=== PATIENT | female | born 1960 | race Caucasian/White ===

== ENCOUNTER 2019-09-25 09:22 | Outpatient (CLI) | payer OTHER, SELFPAY ==
--- NOTE | 2019-09-25 09:38 | CT_ITS ---
WS: [id number] CT ABDOMEN PELVIS TECHNIQUE: Contrast-enhanced CT of the abdomen and pelvis with coronal and sagittal reformatted image s. CLINICAL INFORMATION: PELVIC MASS, COLON CANCER COMPARISON: None. DLP: 1062.[address] scans at [facility] use at least one of these dose optimization techniques: automat ed exposure control; mA and/or kV adjustment per patient size (includes targeted exams where dose is matched to clinical indication); or iterative reconstruction. FINDINGS: Liver is normal. Normal portal vein and splenic vein. Prominent gallstone in the gallbladder neck laura suring 1.5 CM. Normal spleen. Normal GE junction. Lung bases are well aerated. Normal caliber abdomin al aorta. No periaortic or upper abdominal lymphadenopathy. Markedly enlarged fibroid uterus measuring 9.3 x 11.2 x 8.6 cm AP by transverse by craniocaudal. Larg est fibroid measures 8.7 x 7.0 x 7.7 cm which demonstrates diffuse heterogeneous enhancement. Leiomyo sarcoma not entirely excluded. Additional lobulated right sided fibroid measuring 5.5 x 4.8 cm. Fibro id uterus impinges the adjacent bladder. Diffuse nodular wall thickening involving the distal sigmoid and rectum with luminal narrowing. Findi ngs are suspicious for neoplasm with heterogeneous soft tissue at the rectosigmoid measuring 1.8 cm. This can be further evaluated with endoscopy. Mild induration in the perirectal fat and wall thickening in the sigmoid colon. Moderate right colon and transverse colon constipation CT/CT abdomen pelvis w con* [id number] IMPRESSION: 1. Heterogeneous enhancing enlarged fibroid uterus with largest heterogeneousl y enhancing fibroid measuring up to 8.7 cm. Leiomyosarcoma is not excluded. Add itional lobulated right eccentric fibroid measuring 5.5 x 4.8 cm. Recommend OPERATIONS AND MAINTENANCE SPECIALIST consultation for hysterectomy. 2. Diffuse circumferential wall thickening involving the rectosigmoid with ecc entric polypoid mass measuring 1.8 cm suspicious for neoplasm. Mild diffuse wal l thickening involving the distal sigmoid colon. Mild induration in the perirec candice fat. Recommend further evaluation with sigmoidoscopy/colonoscopy. 3. Prominent gallstone in the gallbladder measuring 1.5 CM. No gallbladder wal l thickening. 4. No periaortic lymphadenopathy.
[2019-09-25] MEDS: iohexol 300 mg/mL 50 mL Btl PO (10:27)
[2019-09-25 10:56] LABS: Blood Urea Nitrogen 8 mg/dL (8-23); Glomerular Filtration Rate 72.9 mL/min (90-130)
[2019-09-25] MEDS: iohexol 300 mg/mL 100 mL Btl IV (11:03)
== END 2019-09-25 09:23 | disposition home or self-care (01) ==
LOC: RADWPI 09:28
PROVIDERS: Family Provider Family Medicine; PCP Family Medicine; Visit Provider Family Medicine
DX: C18.9 Malignant neoplasm of colon, unspecified (principal); N85.2 Hypertrophy of uterus; K80.80 Other cholelithiasis without obstruction; R19.00 Intra-abdominal and pelvic swelling, mass and lump, unspecified site
CPT/HCPCS: 74177; 82565; 84520; Q9967

== ENCOUNTER → 2019-11-07 12:50 | Outpatient (BNVA) | payer OTHER, SELFPAY | PROVIDERS: Family Provider Family Medicine; PCP Family Medicine; Visit Provider Obstetrics & Gynecology | DX: Z12.4 Encounter for screening for malignant neoplasm of cervix (principal) | CPT/HCPCS: 88175 ==

== ENCOUNTER → 2019-11-15 09:00 | Outpatient (BNVA) | payer OTHER, SELFPAY | PROVIDERS: Family Provider Family Medicine; PCP Family Medicine; Visit Provider Obstetrics & Gynecology | DX: D25.9 Leiomyoma of uterus, unspecified (principal) | CPT/HCPCS: 76830 ==

== ENCOUNTER → 2022-08-13 11:15 | Outpatient (BNVA) | payer MEDICAID, SELFPAY | PROVIDERS: Family Provider Family Medicine; PCP Family Medicine; Visit Provider Family Medicine | DX: C18.9 Malignant neoplasm of colon, unspecified (principal); Z00.00 Encounter for general adult medical examination without abnormal findings | CPT/HCPCS: 80053; 82306; 82378; 82607; 84443; 85025 ==

== ENCOUNTER 2022-09-11 10:22 | Emergency (ER) | payer MEDICAID, SELFPAY ==
[2022-09-11 10:31] VITALS: BP 128/80; PULSE 98; RESP 18; TEMP 36.8; O2SAT 98
--- NOTE | 2022-09-11 10:46 | ED_ITS ---
HPI - Female Genitourinary General: Chief complaint: Urogenital-Female Stated complaint: urinary problem Time Seen by Provider: 09/11/22 10:32 History of Present Illness: Ms. Acuña is a 62-year-old lady with history of colon cancer diagnosed in 2015 not treated with chemo or radiation, underwent palliative resection at [facility] [place] in 2021 presenting to the emergency department for concern over vaginal discharge with possible feces from the vagina. She reports at baseline secondary to tumor resection she always wears a pad and started noticing some dark discharge anteriorly more concerning for vaginal source yesterday. This morning it was more feces like. Denies abdominal pain or signs of systemic illness. Denies history of similar. With her palliative surgery she had hysterectomy for fibroid uterus. No other specific changes in health, exacerbating, or alleviating factors identified. Onset (ago): day(s) Vaginal discharge: other Vaginal bleeding: none Exacerbating factors: none Relieving factors: none Associated symptoms: Reports no associated symptoms Review of Systems General: Reports: 10 or more systems reviewed and unremarkable except in HPI and below PFSH ED PFSH: Medical History Colon cancer States she had a colonoscopy and was diagnosed with colon cancer in [address] Peters. It was recommended that she have surgery however she declined and desired to proceed with holistic management which she has been doing. Recent CT abdomen done on 09/25/2019 continued to show a soft tissue mass at the rectosigmoid measuring 1.8 cm. -Pathology in November 2015 showed a colon polyp showing an adenoma, rectal mass showing moderately differentiated adenocarcinoma with high-grade dysplasia Fibroid uterus Has had fibroid since at least 1989. Stable fibroid size compared with ultrasound from 2010 to 2019. No pertinent past medical history Denies history of: Asthma, lung, liver, heart, diabetes, thyroid, kidney problems, bleeding or clotting disorders, DVT/PE PCP: Dr. Delacruz Surgical History History of removal of skin mole from right leg-showed dysplasia per patient but no cancer course S/P eye surgery RK surgery on both eyes Family History Sister Breast cancer Diagnosed at age 29, at age 30 Grandmother Ovarian cancer Maternal, diagnosed at age 83 Family/Other Breast cancer Maternal aunt, diagnosed in her 60s or 70s Denies family history of Colon cancer Diabetes Hyperlipidemia Hypertension Stroke Social History Smoking and tobacco status: current every day smoker Alcohol intake: never Additional social history: - Tobacco Use: Started smoking at age 12 and has smoked up to 1/2 pack daily. Currently smokes 4 cigarettes daily Alcohol Use: Used to drink heavily in her 20s. Currently drinks socially, not even once yearly. Drug Use: Reports history of marijuana use and cocaine use in the 1970s. Quit using Cocaine in the and quit smoking marijuana in 2004. Has used CBD oil in 2016 when she was diagnosed with colon cancer. 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 Currently on leave due to [place] Virus. Physical Exam Const: COMMON NORMALS: alert GENERAL APPEARANCE: cooperative and well developed HENMT: COMMON NORMALS: normocephalic and atraumatic HEAD & SCALP: normocephalic and atraumatic Eye: COMMON NORMALS: conjunctivae normal CONJUNCTIVA: Yes conjunctivae normal SCLERA: sclerae normal Neck/C-Spine: COMMON NORMALS: supple GENERAL: Yes trachea midline Resp: COMMON NORMALS: normal respiratory effort EFFORT & INSPECTION: Yes able to speak in complete sentences Cardio: COMMON NORMALS: regular rate and regular rhythm RATE: regular rate RHYTHM: regular rhythm GI: COMMON NORMALS: Soft to palpation PALPATION: Yes Soft to palpation and No Tenderness to palpation present (GI) : OTHER: Pelvic exam performed refining machine operator present. There does appear to be stool in the vaginal vault, I do not identify a specific source though may be your vaginal cuff. Otherwise unremarkable. Extremity: GENERAL: Yes normal exam except as noted and No edema Neuro: COMMON NORMALS: moves all extremities SENSORIUM/ORIENTATION: Yes alert and No Orientation impaired Psych: COMMON NORMALS: mental status grossly normal and Normal thought process present THOUGHT PROCESS: Normal thought process present Course Vital Signs: Vital signs: Vital Signs Temperature 98.2 F 09/11/22 10:31 Pulse Rate 80 09/11/22 11:10 Respiratory Rate 16 09/11/22 14:15 Blood Pressure 125/81 09/11/22 11:10 Pulse Oximetry 98 09/11/22 11:10 Oxygen Delivery Me thod 09/11/22 11:10 MDM - Female Medical Decision Making 62-year-old lady presenting with history of colon cancer not treated with chemo therapy or radiation or initial surgical management however did subsequently have palliative surgery presenting with concern over stool per vagina. Exam as above. Labs with no significant hematologic abnormality. Perhaps mild dehydration noted on metabolic panel. Urinalysis concerning for urinary tract infection. Wet prep with yeast infection. CT with rectal contrast demonstrates clear visualization of rectovaginal fistula. I discussed worsening cancer and requirement for follow-up with the patient. In discussion with PLANTING MATERIAL REMOVER at our facility patient far exceeds her capability. Patient discussed with previous operating surgeon and patient is welcome to follow-up there. Patient treated with Diflucan and nitrofurantoin. Most likely etiology of patient's symptoms is rectovaginal fistula secondary to underlying malignancy. The results of ED evaluation were discussed with the patient including prescriptions and/or symptomatic cares (if applicable) including appropriate and responsible use, followup plan, and return precautions. The patient verbalized understanding and felt safe for discharge. Medical Records I reviewed the patient's medical records. Lab Data I reviewed the patient's lab results. 09/11/22 11:00 09/11/22 11:00 Radiology Impressions Abdomen/Pelvis CT 09/11/22 11:42 IMPRESSION: 1. 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 2. Anastomosis at the rectosigmoid is identified. There is increased soft tissue thickening just proximal to the anastomotic sutures and findings suspi cious for recurrent neoplasm. Presacral soft tissue mass suspicious for metastatic deposit. 3. There is extensive retroperitoneal, iliac chain and pelvic lymphadenopathy suspicious for metastatic disease. Suspect additional lymphadenopathy will be evident with IV and oral contrast present. No prior recent studies. 4. Since the prior examination patient's undergone hysterectomy. 5. Moderate LEFT hydroureteronephrosis. Ureter terminates in the mid sacral region and probably being obstructed by the metastatic deposits along the iliac chain. 6. Patient needs reevaluation with CT post-IV and oral contrast and possible PET/CT. 7. Cholelithiasis. Laboratory Results WBC 8.4 10^3/uL (4.0-10.0) 09/11/22 11:00 RBC 4.11 10^6/uL (4.1-5.3) 09/11/22 11:00 Hgb 12.7 g/dL (11.5-15.3) 09/11/22 11:00 Hct 38.1 % (37.0-47.0) 09/11/22 11:00 MCV 92.7 fl (81-99) 09/11/22 11:00 MCH 30.9 pg (28.0-34.0) 09/11/22 11:00 MCHC 33.3 g/dL (30.0-36.0) 09/11/22 11:00 RDW 12.3 % (12.1-15.1) 09/11/22 11:00 Plt Count 477 10^3/cmm (130-400) H 09/11/22 11:00 MPV 9.7 fL (7.4-10.4) 09/11/22 11:00 Neut % (Auto) 86.5 % 09/11/22 11:00 Lymph % (Auto) 5.8 % 09/11/22 11:00 Band[place] % (Auto) 5.8 % 09/11/22 11:00 Eos % (Auto) 1.0 % 09/11/22 11:00 Baso % (Auto) 0.5 % 09/11/22 11:00 Neut # (Auto) 7.26 10^3/uL (1.8-7.7) 09/11/22 11:00 Lymph # (Auto) 0.5 10^3/uL (0.8-4.8) L 09/11/22 11:00 Bandera # (Auto) 0.5 10^3/uL (0.2-0.9) 09/11/22 11:00 Eos # (Auto) 0.1 10^3/uL (0.0-0.8) 09/11/22 11:00 Baso # (Auto) 0.0 10^3/uL (0.0-0.1) 09/11/22 11:00 Nucleated RBC % (auto) 0 % 09/11/22 11:00 Nucleated RBCs # 0.0 /100WBC 09/11/22 11:00 Sodium 135 mmol/L (136-145) L 09/11/22 11:00 Potassium 4.2 mmol/L (3.5-5.1) 09/11/22 11:00 Chloride 95 mmol/L (98-107) L 09/11/22 11:00 Carbon Dioxide 26 mmol/L (22-29) 09/11/22 11:00 Anion Gap 18.2 (5-19) 09/11/22 11:00 BUN 6 mg/dL (8-23) L 09/11/22 11:00 Creatinine 0.7 mg/dL (0.5-0.9) 09/11/22 11:00 GFR Calculation 84.2 mL/min (90-130) L 09/11/22 11:00 Glucose 113 mg/dL (65-115) 09/11/22 11:00 Calculated Osmolality 278 mOsm/kg (285-295) L 09/11/22 11:00 Calcium 9.4 mg/dL (8.5-10.5) 09/11/22 11:00 Total Bilirubin 0.3 mg/dL (0.15-1.2) 09/11/22 11:00 AST 17 U/L (0-32) 09/11/22 11:00 ALT 8 U/L (0-33) 09/11/22 11:00 Alkaline Phosphatase 63 U/L (35-105) 09/11/22 11:00 Total Protein 6.8 g/dL (6.6-8.7) 09/11/22 11:00 Albumin 4.3 g/dL (3.5-5.2) 09/11/22 11:00 Globulin 2.5 g/dL (1.3-4.6) 09/11/22 11:00 Urine Color Yellow (Yellow) 09/11/22 11:00 Urine Appearance Sl cloudy (CLEAR) A 09/11/22 11:00 Urine pH 6 (5-7) 09/11/22 11:00 Ur Specific [place] 1.005 (1.005-1.030) 09/11/22 11:00 Urine Protein Neg (Negative) 09/11/22 11:00 Urine Glucose (UA) Norm (Normal) 09/11/22 11:00 Urine Ketones Negative (Negative) 09/11/22 11:00 Urine Blood 3+ (Negative) H 09/11/22 11:00 Urine Nitrate Negative (Negative) 09/11/22 11:00 Urine Bilirubin Neg (Negative) 09/11/22 11:00 Urine Urobilinogen Neg mg/dL (Negative) 09/11/22 11:00 Ur Leukocyte Esterase 2+ (Negative) H 09/11/22 11:00 Urine RBC 25-40 /hpf (0-2) H 09/11/22 11:00 Urine WBC 25-40 /hpf (0-5) H 09/11/22 11:00 Ur Squamous Epith Cells 0-4 /hpf (0-5) H 09/11/22 11:00 Amorphous Sediment Not Reportable 09/11/22 11:00 Urine Bacteria 1+ /hpf (NONE) H 09/11/22 11:00 Discharge Plan Discharge Patient Disposition: Home Clinical Impression: Recto-vaginal fistula, Colon cancer, UTI (urinary tract infection), Extrinsic ureteral obstruction, Vaginal yeast infection Condition: Stable Prescriptions: New fluconazole 150 mg tablet 150 mg PO Q48H Qty: 1 0RF Rx Instructions: administer on 09/13 No Action turmeric root extract 500 mg capsule 1,000 mg PO DAILY beta-glucan,1-3, 1-4 (bulk) 70 % powder See Rx Instructions miscellaneous .COMPLEX Rx Instructions: miscellaneous 3 caps daily; multivitamin Capsule 1 cap PO DAILY cyanocobalamin-cobamamide 5,000-100 mcg tablet, sublingual SUBLINGUAL digestive enzymes Capsule 1 cap PO DAILY up4 Probiotics Women's 5 billion cell- 250 mg capsule PO DAILY serrapeptase 3 tab PO DAILY berberine-herbal comb no.18 Capsule PO zinc 50 mg tablet 50 mg PO DAILY detoxified iodine PO boswella serrate PO barley greens PO dandelion root 500 mg capsule PO apple cider vinegar 600 mg capsule PO vitamin E 200 unit capsule 400 unit PO DAILY ascorbic acid (vitamin C) 500 mg capsule, extended release 5,000 mg PO DAILY cesario PO loperamide 2 mg tablet 2 mg PO QID PRN (Reason: loose stool) Qty: 120 5RF loperamide 2 mg capsule 2 mg PO QID PRN (Reason: loose stool) Qty: 360 3RF Discharge Orders: Discharge ED (Routine); Ordered 09/11/22 Ordered By: David Sullivan Referrals: Tico Delacruz DO [Primary Care Provider] - Discharge Diet: Usual diet Discharge Activity: Increase activity as tolerated Patient Instructions: Urinary Tract Infection in Women (ED), Colorectal Cancer (DC), Yeast Infection (ED) Activity Restrictions/Additional Instructions: Thank you for visiting the emergency department. You were seen and evaluated for concern over feces from your vagina. You were found to have a [place]-vaginal fistula. You also have a urine infection and vaginal yeast infection which will be treated with antibiotics/antifungal. Please follow-up with [facility] in [place] for further management. Please call Dr. Lopez's clinic for an appointment. [facility] - [address] [place] [id number] As discussed you do have evidence of worsening cancer as well as obstruction of the left ureter with hydronephrosis. This requires follow-up as well. Return to the emergency department for anything that you are concerned about and feel needs emergency department evaluation. Coding Level of Care Code ED [place] Management Professor for Cinthya Saavedra
[2022-09-11 11:10] VITALS: BP 125/81; PULSE 80; RESP 18; O2SAT 98
[2022-09-11 11:38] LABS: Basophils % 0.5 %; Eosinophils # 0.1 10^3/uL (0.0-0.8); Hematocrit 38.1 % (37.0-47.0); Hemoglobin 12.7 g/dL (11.5-15.3); Lymphocytes # 0.5 10^3/uL (0.8-4.8); Lymphocytes % 5.8 %; Mean Corpuscular HGB Conc 33.3 g/dL (30.0-36.0); Mean Corpuscular Hemoglobin 30.9 pg (28.0-34.0); Mean Corpuscular Volume 92.7 fl (81-99); Mean Platelet Volume 9.7 fL (7.4-10.4); Monocytes # 0.5 10^3/uL (0.2-0.9); Monocytes % 5.8 %; Neutrophils # 7.26 10^3/uL (1.8-7.7); Neutrophils % 86.5 %; Nucleated Red Blood Cells % 0 %; Platelet Count 477 10^3/cmm (130-400); Red Blood Count 4.11 10^6/uL (4.1-5.3); Red Cell Distribution Width 12.3 % (12.1-15.1); White Blood Count 8.4 10^3/uL (4.0-10.0)
--- NOTE | 2022-09-11 11:42 | CT_ITS ---
WS: [id number] CT ABDOMEN AND PELVIS NONCONTRAST HISTORY: eval rectovaginal fistula TECHNIQUE: Imaging performed through the abdomen and pelvis. Rectal contrast provided. No oral or IV contrast. Coronal and sagittal reformats are submitted. All CT scans at [facility] use at [address] one of these dose optimization techniques: automated exposure control; mA and/or kV adjustment per patient size (includes targeted exams where dose is matched to clinical indication); or iterative re construction. DLP: 1019.36 mGy.cm COMPARISON: 09/25/2019. Lower thorax: Lung bases are clear. Visualized heart is normal. No hiatal hernia. Surgical anastomotic sutures are noted at the rectum. These are seen best on the precontrast imaging. Post rectal contrast there is contrast filling the distal colon but also high density contrast exten ds into the vaginal vault. This is really identified after removal of the rectal tube and reimaging. There is a large rectovaginal fistula. This study was performed without IV contrast. Cholelithiasis without acute cholecystitis. Unenhanced liver is normal. Limited visualization of the visceral organs without IV or oral contrast. Moderate LEFT hydroureteronephrosis. LEFT ureter is dila vijaya and tortuous. Loss of the LEFT ureter at the level of the mid sacrum. LEFT ureter is probably obs tructed by lymphadenopathy along the iliac chain and psoas muscle. Extensive retroperitoneal lymphadenopathy. Para-aortic, aortocaval and precaval lymph nodes are ident ified. Lymph nodes measure over 2.0 cm at several locations. Additional LEFT iliac chain adenopathy, inguinal and obturator lymphadenopathy with lymph nodes measuring up to 3.8 x 3.1 cm. Since prior examination the uterus is been removed. There is presacral soft tissue thickening. Lympha denopathy within the pelvis. Enlarged lymph nodes in the LEFT pararectal fat in all along the LEFT ob turator. Colonic narrowing just proximal to the anastomosis. There is increased circumferential soft tissue thickening which may be recurrent tumor. No definite osteoblastic or osteolytic lesions are identified. CT/CT abdomen pelvis wo con [id number] IMPRESSION: 1. 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 2. Anastomosis at the rectosigmoid is identified. There is increased soft tiss ue thickening just proximal to the anastomotic sutures and findings suspicious for recurrent neoplasm. Presacral soft tissue mass suspicious for metastatic de posit. 3. There is extensive retroperitoneal, iliac chain and pelvic lymphadenopathy suspicious for metastatic disease. Suspect additional lymphadenopathy will be e vident with IV and oral contrast present. No prior recent studies. 4. Since the prior examination patient's undergone hysterectomy. 5. Moderate LEFT hydroureteronephrosis. Ureter terminates in the mid sacral re gion and probably being obstructed by the metastatic deposits along the iliac c darrion. 6. Patient needs reevaluation with CT post-IV and oral contrast and possible P ET/CT. 7. Cholelithiasis.
[2022-09-11 12:10] LABS: Urine Color Yellow (Yellow)
[2022-09-11 12:11] LABS: Add Urine Microscopic? YES; Bilirubin Urine Neg (Negative); Blood Urine 3+ (Negative); Glucose Urine UA Norm (Normal); Ketones Urine Negative (Negative); Leukocyte Esterase Urine 2+ (Negative); Nitrate Urine Negative (Negative); Protein Urine Neg (Negative); Specific Gravity, Urine 1.005 (1.005-1.030); Urobilinogen Urine Neg (Negative); pH Urine 6 (5-7)
[2022-09-11 12:12] LABS: Add Urine Culture? Yes; Bacteria Urine 1+ /hpf; RBC Urine 25-40 /hpf (0-2); Squamous Epithelial Cell Urine 0-4 /hpf (0-5); WBC Urine 25-40 /hpf (0-5)
[2022-09-11] MEDS: iohexol 350 mg/mL 500 mL Btl (per mL) PO (12:14)
[2022-09-11 12:42] LABS: Alanine Aminotransferase 8 U/L (0-33); Albumin Level 4.3 g/dL (3.5-5.2); Alkaline Phosphatase 63 U/L (35-105); Anion Gap 18.2 (5-19); Aspartate Amino Transferase 17 U/L (0-32); Blood Urea Nitrogen 6 mg/dL (8-23); Calcium 9.4 mg/dL (8.5-10.5); Carbon Dioxide 26 mmol/L (22-29); Chloride 95 mmol/L (98-107); Globulin 2.5 g/dL (1.3-4.6); Glomerular Filtration Rate 84.2 mL/min (90-130); Glucose 113 mg/dL (65-115); Osmolality Calculated 278 mOsm/kg (285-295); Potassium 4.2 mmol/L (3.5-5.1); Sodium 135 mmol/L (136-145); Total Bilirubin 0.3 mg/dL (0.15-1.2); Total Protein 6.8 g/dL (6.6-8.7)
[2022-09-11 14:15] VITALS: RESP 16
== END 2022-09-11 14:00 | disposition home or self-care (01) ==
PROVIDERS: Emergency Provider Emergency Medicine; PCP Family Medicine
DX: N82.4 Other female intestinal-genital tract fistulae (principal); N39.0 Urinary tract infection, site not specified; B37.31 Acute candidiasis of vulva and vagina; C18.9 Malignant neoplasm of colon, unspecified; N13.1 Hydronephrosis with ureteral stricture, not elsewhere classified; K80.20 Calculus of gallbladder without cholecystitis without obstruction; F17.210 Nicotine dependence, cigarettes, uncomplicated
CPT/HCPCS: 74176; 80053; 81001; 85025; 87077; 87086; 87186; 87210; 99284; Q9967